=== PATIENT | female | born 1945 | race Caucasian/White ===

== ENCOUNTER 2021-11-17 13:58 | Outpatient (CLI) | payer MEDICARE, OTHER | END 2021-11-17 13:59 | disposition home or self-care (01) | LOC: CSHMAMMO 13:58 | PROVIDERS: ATTEND Family Medicine | DX: Z12.31 Encounter for screening mammogram for malignant neoplasm of breast (principal) | CPT/HCPCS: 77063; 77067 ==

== ENCOUNTER 2022-07-21 13:36 | Outpatient (CLI) | payer MEDICARE, OTHER | END 2022-07-21 13:37 | disposition home or self-care (01) | LOC: CSHULT 13:36 | PROVIDERS: ATTEND Family Medicine | DX: R31.9 Hematuria, unspecified (principal) | CPT/HCPCS: 76770 ==

== ENCOUNTER 2022-07-31 07:55 | Outpatient (CLI) | payer MEDICARE, OTHER ==
[2022-07-31] MEDS ORDERED: Iopamidol 300 61% 100 ML VIAL FS ONE (14:00)
== END 2022-07-31 07:56 | disposition home or self-care (01) ==
LOC: CSHCT 07:55
PROVIDERS: ATTEND Family Medicine
DX: N28.89 Other specified disorders of kidney and ureter (principal); N28.1 Cyst of kidney, acquired; D25.9 Leiomyoma of uterus, unspecified; Z90.49 Acquired absence of other specified parts of digestive tract; K57.30 Diverticulosis of large intestine without perforation or abscess without bleeding
CPT/HCPCS: 74178; 82565; Q9967

== ENCOUNTER 2022-12-02 13:57 | Outpatient (CLI) | payer MEDICARE, OTHER | END 2022-12-02 13:58 | disposition home or self-care (01) | LOC: CSHMAMMO 13:57 | PROVIDERS: ATTEND Family Medicine | DX: Z12.31 Encounter for screening mammogram for malignant neoplasm of breast (principal) | CPT/HCPCS: 77063; 77067 ==

== ENCOUNTER 2023-04-13 08:24 | Outpatient (CLI) | payer MEDICARE | END 2023-04-13 08:25 | disposition home or self-care (01) | LOC: CSHMAMMO 08:24 | PROVIDERS: ATTEND Nurse Practitioner Family | DX: N63.10 Unspecified lump in the right breast, unspecified quadrant (principal); N60.01 Solitary cyst of right breast | CPT/HCPCS: 76642; 77065; G0279 ==

== ENCOUNTER 2025-01-04 11:28 | Outpatient (CLI) | payer MEDICARE | END 2025-01-04 11:29 | disposition home or self-care (01) | LOC: CSHMAMMO 11:28 | PROVIDERS: ATTEND Family Medicine | DX: Z12.31 Encounter for screening mammogram for malignant neoplasm of breast (principal) | CPT/HCPCS: 77063; 77067 ==